=== PATIENT | male | born 1985 | race African-American/Black ===

== ENCOUNTER 2024-07-27 15:32 | Inpatient (IN) | payer MEDICAID ==
[~2024-07-27] VITALS: Ht 175.3 cm; Wt 71.7 kg
[2024-07-27 16:49] LABS: BASOPHILS % 0.6 % (0.0-2.0); EOSINOPHILS % 1.5 % (0.0-5.0); HEMATOCRIT. 37.6 % (42.0-52.0); HEMOGLOBIN. 12.3 g/dL (14.0-18.0); LYMPHOCYTES % 10.3 % (20.0-50.0); MEAN CORPUSCULAR HEMOGLOBIN 29.7 pg (28.0-32.0); MEAN CORPUSCULAR HGB CONC 32.6 g/dL (31.0-37.0); MEAN CORPUSCULAR VOLUME 91.1 fL (80.0-94.0); MEAN PLATELET VOLUME 7.8 fl (7.4-10.4); NEUTROPHILS % 75.6 % (40.0-76.0); PLATELET 404 x1000/uL (130-400); RED BLOOD CELL COUNT 4.13 mill/uL (4.7-6.1); RED CELL DISTRIBUTION WIDTH 14.3 % (11.6-14.6); WHITE BLOOD COUNT 14.8 x1000/uL (4.5-11.0)
[2024-07-27 16:50] LABS: CHLORIDE 94 mEq/L (98-107); SODIUM 133 mEq/L (136-145)
[2024-07-27 16:51] LABS: CARBON DIOXIDE 27 mEq/L (21-32)
[2024-07-27] MEDS: CEFTRIAXONE 1GM/50ML 50 ML IV ONE (16:51)
[2024-07-27 16:57] LABS: GLUCOSE 77 mg/dL (70-105); TROPONIN I HIGH SENSITIVITY 16 ng/L (3.0-53); UREA NITROGEN BLOOD 39 mg/dL (9-23)
[2024-07-27 16:59] LABS: CREATININE 11.2 mg/dL (0.6-1.3)
[2024-07-27] MEDS: AZITHROMYCIN 500MG/250ML 250 ML IV SCH (17:42)
[2024-07-27 22:41] VITALS: BP 136/92; PULSE 103; RESP 20; TEMP 36.5848
[2024-07-28] VITALS (18 sets, daily range): BP systolic 101–135; BP diastolic 62–97; PULSE 87–112; RESP 18–20; TEMP 36.22512–38.55864; O2SAT 94–100
[2024-07-28] MEDS: ACETAMINOPHEN 325MG TABLET PO PRN (04:35)
[2024-07-28] MEDS: IPRATROPIUM/ALBUTEROL 0.5-3(2.5)MG/3ML NEB HHN SCH (04:37)
[2024-07-28 07:32] LABS: PHOSPHORUS 4.1 mg/dL (2.5-4.9)
[2024-07-28] MEDS: AMLODIPINE 5MG TABLET PO SCH (08:50)
[2024-07-28 08:54] LABS: BASOPHILS % 0.7 % (0.0-2.0); EOSINOPHILS % 2.3 % (0.0-5.0); HEMATOCRIT. 35.9 % (42.0-52.0); HEMOGLOBIN. 11.6 g/dL (14.0-18.0); LYMPHOCYTES % 12.9 % (20.0-50.0); MEAN CORPUSCULAR HEMOGLOBIN 29.6 pg (28.0-32.0); MEAN CORPUSCULAR HGB CONC 32.3 g/dL (31.0-37.0); MEAN CORPUSCULAR VOLUME 91.7 fL (80.0-94.0); MEAN PLATELET VOLUME 7.9 fl (7.4-10.4); MONOCYTES % 11.9 % (2.0-8.0); NEUTROPHILS % 72.2 % (40.0-76.0); PLATELET 396 x1000/uL (130-400); RED BLOOD CELL COUNT 3.92 mill/uL (4.7-6.1); RED CELL DISTRIBUTION WIDTH 14.3 % (11.6-14.6); WHITE BLOOD COUNT 14.9 x1000/uL (4.5-11.0)
[2024-07-28] MEDS: FOLIC ACID/VITAMIN B COMP W-C TABLET PO SCH (12:33)
[2024-07-28 12:56] LABS: HEPATITIS B SURFACE ANTIGEN NEGATIVE (Negative)
[2024-07-28 13:17] LABS: HEPATITIS A AB IGM NEGATIVE (Negative)
[2024-07-28 13:18] LABS: HEPATITIS B CORE AB IGM NEGATIVE (Negative); HEPATITIS C AB NON REACTIVE (Neg) (Negative)
[2024-07-28] MEDS: CEFTRIAXONE 1GM/50ML 50 ML IV SCH (17:39)
[2024-07-28] MEDS ORDERED: AZITHROMYCIN 500MG/250ML 250 ML IV SCH ×2 (18:00)
[2024-07-28] MEDS: AZITHROMYCIN 500 MG in SODIUM CHLORIDE 0.9% 250 ML IV SCH (20:49)
[2024-07-28] MEDS: MELATONIN 3MG TABLET PO SCH (23:16)
[2024-07-29] VITALS (7 sets, daily range): BP systolic 113–122; BP diastolic 75–82; PULSE 86–115; RESP 16–24; TEMP 36.3918–36.6696; O2SAT 94–98
[2024-07-29] MEDS: GUAIFENESIN-DM 200MG-20MG/10ML UDC PO PRN (02:41)
[2024-07-29] MEDS ORDERED: LEVO250T74 MT (12:39)
[2024-07-29] MEDS: GUAIFENESIN 600MG ER TABLET PO SCH (21:19)
[2024-07-29 22:32] LABS: BASOPHILS % 0.7 % (0.0-2.0); HEMATOCRIT. 37.2 % (42.0-52.0); HEMOGLOBIN. 12.1 g/dL (14.0-18.0); LYMPHOCYTES % 16.8 % (20.0-50.0); MEAN CORPUSCULAR HEMOGLOBIN 29.7 pg (28.0-32.0); MEAN CORPUSCULAR HGB CONC 32.5 g/dL (31.0-37.0); MEAN CORPUSCULAR VOLUME 91.3 fL (80.0-94.0); MEAN PLATELET VOLUME 8.3 fl (7.4-10.4); MONOCYTES % 12.1 % (2.0-8.0); NEUTROPHILS % 67.4 % (40.0-76.0); PLATELET 422 x1000/uL (130-400); RED BLOOD CELL COUNT 4.07 mill/uL (4.7-6.1); RED CELL DISTRIBUTION WIDTH 13.9 % (11.6-14.6); WHITE BLOOD COUNT 14.8 x1000/uL (4.5-11.0)
[2024-07-29 22:41] LABS: POTASSIUM 3.8 mEq/L (3.5-5.1)
[2024-07-29 22:42] LABS: CALCIUM 8.6 mg/dL (8.7-10.4)
[2024-07-29 22:49] LABS: CREATININE 12.5 mg/dL (0.6-1.3)
[2024-07-30] VITALS (7 sets, daily range): BP systolic 119–136; BP diastolic 72–89; PULSE 74–103; RESP 14–18; TEMP 36.50292–36.72516; O2SAT 96–100
[2024-07-30] MEDS ORDERED: BICT1TAB PO (04:34)
[2024-07-30] MEDS ORDERED: CARV3.1242 PO (04:34)
[2024-07-30] MEDS ORDERED: CALC667C PO (04:36)
[2024-07-30] MEDS ORDERED: AZITHROMYCIN 500 MG TABLET PO SCH (20:00)
== END 2024-07-30 13:00 | disposition home or self-care (01) | DRG 720 ==
LOC: ER 15:32 → 5WST 17:36 → EDBEDREQ 18:26 → EDBEDREQTM 18:26 → 7WST 07-29 23:40
PROVIDERS: ADMIT Internal Medicine; ATTEND Internal Medicine
PROC: 5A1D70Z Performance of Urinary Filtration, Intermittent, Less than 6 Hours Per Day (ICD-10-PCS; principal; 2024-07-28)
DX: A41.9 Sepsis, unspecified organism (principal); I13.2 Hypertensive heart and chronic kidney disease with heart failure and with stage 5 chronic kidney disease, or end stage renal disease; J18.9 Pneumonia, unspecified organism; N18.6 End stage renal disease; E87.1 Hypo-osmolality and hyponatremia; I50.9 Heart failure, unspecified; D64.9 Anemia, unspecified; Z99.2 Dependence on renal dialysis; Z91.158 Patient's noncompliance with renal dialysis for other reason
CPT/HCPCS: 36415; 71045; 80048; 80061; 83605; 84100; 84484; 85025; 86705; 86709; 87340; 90935; 93005; 94070; 94640; 98960; 99285; J0456; J0696; J7050